=== PATIENT | female | born 1940 | race Caucasian/White ===

== ENCOUNTER 2017-09-15 15:44 | Emergency (ER) | payer MEDICARE, OTHER ==
[2017-09-15] MEDS ORDERED: LORazepam 0.5 MG TABLET PO STA ×2 (16:11→17:05)
--- NOTE | 2017-09-15 16:11 | ED Physician Documentation ---
History of Present Illness - Stated complaint Stated Complaint: ANXIETY - Chief complaint Chief Complaint: General - History obtained from History obtained from: Patient - History of Present Illness Timing: Other (She had a TIA about a month ago, she had a workup showing a PFO when she was on a cardiac cath technologist. She was started on aspirin and The document manager wanted to start her on a statin but she did not fill the prescription and that is making her anxious she is here visiting from out of town. Also she lost a cardiac cath technologist and faces a cost for replacement which is also making her stressed. The last day she been feeling very anxious like she is on a roller coaster. There is no pain or shortness of breath with it.) Review of Systems Constitutional: reports: Reviewed and negative Nose: reports: Reviewed and negative Cardiac: reports: Reviewed and negative Respiratory: reports: Reviewed and negative PD PAST MEDICAL HISTORY - Present Medications Home Medications: Ambulatory Orders Medication Instructions Recorded Confirmed Atorvastatin Calcium 10 mg PO DAILY #30 tablet 09/15/17 - Allergies Allergies/Adverse Reactions: Allergies Allergy/AdvReac Type Severity Reaction Status Date / Time No Known Drug Allergies Allergy Verified 09/15/17 15:57 PD ED PE NORMAL - Vitals Vital signs reviewed: Yes - General General: Alert and oriented X 3, No acute distress, Other (speaking quickly, anxious) - HEENT HEENT: PERRL, EOMI - Neck Neck: Supple, no meningeal sign, No bony TTP - Cardiac Cardiac: RRR, No murmur - Respiratory Respiratory: No respiratory distress, Clear bilaterally - Abdomen Abdomen: Normal bowel sounds, Soft, Non tender - Back Back: No CVA TTP, No spinal TTP - Derm Derm: Normal color, Warm and dry - Extremities Extremities: No edema, No calf tenderness / cord - Neuro Neuro: Alert and oriented X 3, Other (NIHSS zero) Eye Opening: Spontaneous Motor: Obeys Commands Verbal: Oriented GCS Score: 15 - Psych Psych: Normal mood, Normal affect Results - Vitals Vitals: Vital Signs - 24 hr 09/15/17 09/15/17 15:54 17:00 Temperature 37.3 C Heart Rate 113 H 94 Respiratory 20 16 Rate Blood Pressure 164/96 H 126/70 O2 Saturation 97 100 Oxygen O2 Source Room air - EKG (time done) 1554 Rate: Rate (enter#) (101) Rhythm: Sinus tachycardia [place]: Normal Intervals: Normal LA QRS: Normal Ischemia: Normal ST segments Computer interpretation: Agree with computer - Labs Labs: Laboratory Tests 09/15/17 09/15/17 09/15/17 16:23 16:23 16:23 WBC 8.0 RBC 5.28 Hgb 15.7 Hct 46.8 MCV 88.6 MCH 29.8 MCHC 33.6 RDW 14.2 Plt Count 257 MPV 8.0 Neut # 6.6 Lymph # 1.1 L Emmet # 0.3 Eos # 0.0 Baso # 0.0 Absolute Nucleated RBC 0.00 Nucleated RBC % 0.0 Sodium 139 Potassium 3.4 L Chloride 106 Carbon Dioxide 22 Anion Gap 11.0 BUN 13 Creatinine 0.8 Estimated GFR (MDRD) 70 L Glucose 178 H Calcium 9.1 Magnesium 2.1 Total Bilirubin 0.3 AST 25 ALT 24 Alkaline Phosphatase 44 Troponin I < 0.04 Total Protein 7.3 Albumin 4.3 Globulin 3.0 Albumin/Globulin Ratio 1.4 Lipase 30 PD MEDICAL DECISION MAKING - ED course ED course: 77-year-old woman with apparent anxiety, she was on the monitor here without significant ectopy. Her labs were unremarkable. She felt much better after half a milligram of Ativan here. She was started on a statin because that is what her document manager wanted to do. And she does not have the prescription here. A low dose of Lipitor seems reasonable. She will follow-up on return home. She is given 3 Ativan to go. Departure - Departure Disposition: 01 Home, Self Care Clinical Impression: Anxiety about health Condition: Good Record reviewed to determine appropriate education?: Yes Instructions: ED Panic Attack Prescriptions: Atorvastatin Calcium 10 mg PO DAILY #30 tablet Comments: Followup with your physician on return home. Return if worse.
[2017-09-15] MEDS ORDERED: LORazepam 0.5 MG TABLET ONE ×2 (16:19→17:21)
[2017-09-15 16:26] LABS: BASOPHILS % (AUTO) 0.5 %; EOSINOPHILS % (AUTO) 0.3 %; HCT - HEMATOCRIT 46.8 % (37.0-47.0); HGB - HEMOGLOBIN 15.7 g/dL (12.0-16.0); LYMPHOCYTES # (AUTO) 1.1 10^3/uL (1.5-3.5); LYMPHOCYTES % (AUTO) 13.5 %; MEAN CORPUSCULAR HEMOGLOBIN 29.8 pg (27.0-31.0); MEAN CORPUSCULAR HGB CONC 33.6 g/dL (32.0-36.0); MEAN CORPUSCULAR VOLUME 88.6 fL (81.0-99.0); MONOCYTES # (AUTO) 0.3 10^3/uL (0.0-1.0); MONOCYTES % (AUTO) 3.2 %; NEUTROPHILS # (AUTO) 6.6 10^3/uL (1.5-6.6); NEUTROPHILS % (AUTO) 82.5 %; RED BLOOD COUNT 5.28 10^6/uL (4.20-5.40); RED CELL DISTRIBUTION WIDTH 14.2 % (12.0-15.0)
[2017-09-15 16:45] LABS: ALBUMIN/GLOBULIN RATIO 1.4 (1.0-2.2); BILIRUBIN,TOTAL 0.3 mg/dL (0.2-1.0); CALCIUM 9.1 mg/dL (8.5-10.3); CREATININE 0.8 mg/dL (0.4-1.0); MAGNESIUM 2.1 mg/dL (1.7-2.8); POTASSIUM 3.4 mmol/L (3.5-5.0); TOTAL PROTEIN 7.3 g/dL (6.7-8.2)
[2017-09-15] MEDS ORDERED: ATORVASTATIN 10 MG TABLET PO STA (17:05)
[2017-09-15 17:28] VITALS: BP 133/72
== END 2017-09-15 17:40 | disposition home or self-care (01) ==
LOC: ED 15:44
DX: F41.9 Anxiety disorder, unspecified (principal); Z86.73 Personal history of transient ischemic attack (TIA), and cerebral infarction without residual deficits; Z79.82 Long term (current) use of aspirin
CPT/HCPCS: 36415; 80053; 83690; 83735; 84484; 85025; 93005; 99283; A9270